=== PATIENT | male | born 1990 | race African-American/Black ===

== ENCOUNTER 2017-02-13 12:59 | Emergency (ER) | payer SELFPAY ==
[~2017-02-13] VITALS: Ht 167.6 cm; Wt 70.0 kg
[2017-02-13] MEDS ORDERED: KETOROLAC 30MG/ML VIAL IM ONE (15:00)
[2017-02-13 17:13] VITALS: BP 117/75
== END 2017-02-13 17:53 | disposition home or self-care (01) ==
LOC: ER 13:17
DX: M25.462 Effusion, left knee (principal); F12.10 Cannabis abuse, uncomplicated; W18.31XA Fall on same level due to stepping on an object, initial encounter; Y93.89 Activity, other specified; Y92.89 Other specified places as the place of occurrence of the external cause
CPT/HCPCS: 73562; 96372; 99284; J1885; L1830; Z7610

== ENCOUNTER 2019-04-07 22:37 | Emergency (ER) | payer MEDICAID ==
[~2019-04-07] VITALS: Ht 170.2 cm; Wt 67.0 kg
[2019-04-07 23:47] LABS: BASOPHILS % 0.7 % (0.0-2.0); CHLORIDE 109 mEq/L (98-107); EOSINOPHILS % 2.2 % (0.0-5.0); HEMATOCRIT. 41.9 % (42.0-52.0); HEMOGLOBIN. 14.5 g/dL (14.0-18.0); LYMPHOCYTES % 38.8 % (20.0-50.0); MEAN CORPUSCULAR HEMOGLOBIN 32.8 pg (28.0-32.0); MEAN CORPUSCULAR VOLUME 95.1 fL (80.0-94.0); MEAN PLATELET VOLUME 8.5 fl (7.4-10.4); MONOCYTES % 7.8 % (2.0-8.0); NEUTROPHILS % 50.5 % (40.0-76.0); PLATELET 216 x1000/uL (130-400); RED BLOOD CELL COUNT 4.41 mill/uL (4.7-6.1); RED CELL DISTRIBUTION WIDTH 13.9 % (11.6-14.6)
[2019-04-08] MEDS ORDERED: KETOROLAC 30MG/ML VIAL IM ONE
[2019-04-08 00:34] VITALS: BP 128/72
== END 2019-04-08 00:54 | disposition home or self-care (01) ==
LOC: ER 22:37
DX: R07.89 Other chest pain (principal); F12.10 Cannabis abuse, uncomplicated; F17.210 Nicotine dependence, cigarettes, uncomplicated; Z96.652 Presence of left artificial knee joint
CPT/HCPCS: 36415; 71045; 80048; 84484; 85025; 93005; 96372; 99284; 99406; J1885